=== PATIENT | male | born 1985 | race Caucasian/White ===

== ENCOUNTER 2021-10-23 15:27 | Outpatient (CLI) | payer MEDICARE, MEDICAID ==
[2021-10-24 00:46] LABS: SARS-CoV-2 PCR by NAA Not Detected (NotDetected)
== END 2021-10-23 15:28 | disposition home or self-care (01) ==
LOC: CSHLAB 15:27
PROVIDERS: ATTEND Surgery
DX: Z20.822 Contact with and (suspected) exposure to COVID-19 (principal); K21.9 Gastro-esophageal reflux disease without esophagitis
CPT/HCPCS: U0003; U0005

== ENCOUNTER 2021-10-28 05:51 | Day surgery (SDC) | payer MEDICARE, MEDICAID ==
[2021-10-27 13:53] VITALS: BMI 14.1
[2021-10-28] MEDS ORDERED: Lidocaine 1% MPF 2 ML VIAL ONE (06:58)
[2021-10-28] MEDS ORDERED: PROPOFOL 20 ML ONE (07:32)
[2021-10-28] MEDS ORDERED: Lidocaine 1% PF 5 ML VIAL ONE (07:42)
[2021-10-28] MEDS ORDERED: ePHEDrine Sulfate 50 MG/10 ML VIAL ONE (07:42)
== END 2021-10-28 08:30 | disposition home or self-care (01) ==
LOC: CSHSDC 05:51
PROVIDERS: ATTEND Surgery
PROC: 0DB48ZX Excision of Esophagogastric Junction, Via Natural or Artificial Opening Endoscopic, Diagnostic (ICD-10-PCS; principal; 2021-10-28)
PROC: 0DB78ZX Excision of Stomach, Pylorus, Via Natural or Artificial Opening Endoscopic, Diagnostic (ICD-10-PCS; 2021-10-28)
DX: K29.50 Unspecified chronic gastritis without bleeding (principal); K31.9 Disease of stomach and duodenum, unspecified; K44.9 Diaphragmatic hernia without obstruction or gangrene; K21.00 Gastro-esophageal reflux disease with esophagitis, without bleeding; G80.9 Cerebral palsy, unspecified; G40.909 Epilepsy, unspecified, not intractable, without status epilepticus; Z79.899 Other long term (current) drug therapy; Z79.01 Long term (current) use of anticoagulants
CPT/HCPCS: 88305; 88342; J2704